=== PATIENT | female | born 1985 | race Caucasian/White ===

== ENCOUNTER 2021-01-30 19:20 | Emergency (ER) | payer MEDICARE, OTHER ==
[~2021-01-30 19:20] MED LIST: MACROBID 100 M100 MG PO
[2021-01-30 19:40] LABS: HEMOGLOBIN 13.9 gm/dl (12.3-15.3); RED BLOOD COUNT 4.6 M/UL (4.00-5.10); WHITE BLOOD COUNT 21.6 K/UL (4.5-11.0)
[2021-01-30 19:58] LABS: BUN/CREATININE RATIO 33 (0-10)
[2021-01-31] MEDS ORDERED: KEFLEX CAP 250250 MG PO (03:11)
== END 2021-01-31 06:00 | disposition home or self-care (01) ==
LOC: ER1 19:20
PROVIDERS: Physician Assistant
DX: F15.10 Other stimulant abuse, uncomplicated (principal); F17.200 Nicotine dependence, unspecified, uncomplicated; Z20.822 Contact with and (suspected) exposure to COVID-19
CPT/HCPCS: 70450; 71045; 80053; 80307; 81001; 82550; 82553; 83605; 83690; 83735; 84484; 84703; 85025; 85652; 87077; 87086; 87186; 99285; G0480; U0002

== ENCOUNTER 2021-10-06 23:18 | Emergency (ER) | payer MEDICARE, OTHER ==
[~2021-10-06 23:18] MED LIST changes: +KEFLEX CAP 250250 MG PO
== END 2021-10-06 23:51 | disposition left against medical advice (07) ==
LOC: ER1 23:18
DX: T40.1X1A Poisoning by heroin, accidental (unintentional), initial encounter (principal); F15.10 Other stimulant abuse, uncomplicated
CPT/HCPCS: 93005; 99281

== ENCOUNTER 2022-03-25 00:56 | Emergency (ER) | payer MEDICARE, OTHER ==
[2022-03-25 01:16] LABS: HEMOGLOBIN 13.6 gm/dl (12.3-15.3); RED BLOOD COUNT 4.48 M/UL (4.00-5.10)
[2022-03-25 01:39] LABS: BUN/CREATININE RATIO 19 (0-10)
[2022-03-25] MEDS ORDERED: OMNICEF 300 MG300 MG PO (03:51)
== END 2022-03-25 04:25 ==
LOC: ER1 00:56
PROVIDERS: Physician Assistant
DX: R07.9 Chest pain, unspecified (principal); N39.0 Urinary tract infection, site not specified; F17.210 Nicotine dependence, cigarettes, uncomplicated
CPT/HCPCS: 71045; 80053; 80307; 81001; 82550; 82553; 83880; 84484; 84703; 85025; 87077; 87086; 87186; 93005; 96372; 99285; J0696